=== PATIENT | female | born 1950 | race Caucasian/White ===

== ENCOUNTER 2023-03-12 07:42 | Outpatient (CLI) | payer OTHER ==
[~2023-03-12 07:42] MED LIST: COZAAR50 MG; NORVASC5 MG; ORPH100T PO; TOPROL XL50 M1; TRAMADOL HCL-AP1 TAB PO
== END 2023-03-12 07:54 | disposition home or self-care (01) ==
LOC: RX STUDY 07:42
PROVIDERS: ATTEND Internal Medicine Gastroenterology
DX: K66.0 Peritoneal adhesions (postprocedural) (postinfection) (principal); K57.30 Diverticulosis of large intestine without perforation or abscess without bleeding